=== PATIENT | male | born 1955 | race Caucasian/White ===

== ENCOUNTER → 2021-04-18 | Outpatient (CLI) | payer MEDICARE ==
[~2021-04-18] VITALS: Ht 182.9 cm; Wt 79.1 kg
[2021-04-18 07:17] VITALS: BP 161/90; PULSE 49; TEMP 98.4
[2021-04-18 08:11] VITALS: BP 164/84; PULSE 54
--- NOTE | 2021-04-18 08:30 | NUR ---
PT TAKEN DOWN TO LOBBY IN WHEELCHAIR. PRESENT AND PT LEAVES
== END ==
LOC: COL.RAD 06:49
DX: M47.812 Spondylosis without myelopathy or radiculopathy, cervical region (principal); Z98.1 Arthrodesis status
CPT/HCPCS: J1100

== ENCOUNTER → 2022-08-01 | Outpatient (CLI) | payer MEDICARE ==
[~2022-08-01] VITALS: Ht 182.9 cm; Wt 81.8 kg
[~2022-08-01] MED LIST: NEURONTIN400 MG/CAP PO; ROBAXIN 75750 MG/TAB PO
[2022-08-01 06:40] VITALS: BP 146/77; PULSE 51; TEMP 98.1
[2022-08-01 08:14] VITALS: BP 149/84; PULSE 53
== END ==
LOC: COL.RAD 06:24
DX: M54.16 Radiculopathy, lumbar region (principal)
CPT/HCPCS: J3301

== ENCOUNTER → 2023-11-25 | Outpatient (CLI) | payer MEDICARE ==
[~2023-11-25] VITALS: Ht 182.9 cm; Wt 77.5 kg
[~2023-11-25] MED LIST changes: +IRON TABLETS325 MG PO; +NEURONTIN600 MG/TAB PO; +Triamcinolone 40 MG/ML 1 ML VIAL IJ SCH
[2023-11-25 12:15] VITALS: BP 131/76; PULSE 56; TEMP 97.9
[2023-11-25 13:35] VITALS: BP 144/83; PULSE 53
--- NOTE | 2023-11-25 13:59 | NUR ---
PATIENT COMPLETED HIS RECOVERY TIME WITHOUT ANY ISSUES. NO NUMBNESS, TINGLING, OR PAIN. PATIENT ABLE TO WALK WITHOUT ISSUE. BANDAGE REMAINS CLEAN, DRY, AND INTACT. ALL QUESTIONS ANSWERED. PATIENT ESCORTED TO PATIENT ENTRANCE VIA WHEELCHAIR WITH ALL PERSONAL ITEMS AND PAPERWORK. PATIENT ABLE TO GET INTO FRONT PASSENGER SEAT OF HIS RIDE WITHOUT ANY ISSUES. ALL NEEDS MET.
== END ==
LOC: COL.RAD 11:57
DX: M54.9 Dorsalgia, unspecified (principal)
CPT/HCPCS: J0665; J3301